=== PATIENT | female | born 1995 | race Caucasian/White ===

== ENCOUNTER 2021-08-13 17:25 | Inpatient (IN) | payer BC, SELFPAY ==
[2021-08-13] VITALS (10 sets, daily range): BP systolic 88–117; BP diastolic 52–66; PULSE 83–94; RESP 16; TEMP 36.4; BMI 33.5; BMI 28.3
[2021-08-13 18:17] LABS: Basophils Absolute Auto 0.1 K/mm3 (0.0-0.1); Basophils Percent Auto 0.6 % (0.2-1.2); Eosinophils Absolute Auto 0.1 K/mm3 (0-0.3); Eosinophils Percent Auto 0.8 % (0-4.4); Hemoglobin 11.7 g/dL (12.0-15.0); Immature Granulocyte Absolute 0.45 K/mm3 (0.00-0.031); Immature Granulocyte Percent A 2.6 % (0-0.5); Lymphocytes Absolute Auto 2.52 K/mm3 (0.9-3.2); Lymphocytes Percent Auto 14.6 % (18.3-44.2); Mean Corpuscular HGB Conc 34.4 g/dl (32-36); Mean Corpuscular Hemoglobin 33.1 pg (26-34); Mean Corpuscular Volume 96.3 fl (80-100); Mean Platelet Volume 10.7 fl (7.4-10.4); Monocytes Absolute Auto 1.4 K/mm3 (0.1-0.6); Monocytes Percent Auto 8.1 % (2.6-8.5); Neutrophils Absolute Auto 12.6 K/mm3 (1.3-6.7); Neutrophils Percent Auto 73.3 % (45.5-73.1); Platelet Count Result 192 k/mm3 (150-375); Red Blood Count 3.53 M/mm3 (4.2-5.4); Red Cell Distribution Width 12.7 % (11.5-14.5); White Blood Count 17.2 K/mm3 (4.5-10.0)
[2021-08-13] MEDS: LACTATED RINGERS 1,000 ML 125 ML IV CONT (18:31)
[2021-08-13] MEDS: DINOPROSTONE 10 MG VAG INSERT VAGINAL (18:53)
--- NOTE | 2021-08-13 19:50 | WPDANESEPP ---
Anes - Eval Pre Procedure Procedure: labor epidural Date/Time: 08/13/21 19:50 Surgeon: khalida Pre Op Diagnosis: IOL Patient Data Age: 26 Gender: F Height: 1.6 m Weight: 72.6 kg Last Vital Signs Pulse 92 08/13/21 19:31 BP 108/59 L 08/13/21 19:31 Allergies Allergy/AdvReac Type Severity Reaction Status Date / Time No Known Allergies Allergy Verified 08/13/21 15:03 Home Medications Medication Instructions Recorded Confirmed Type prenat.vits,jaden,mft-smaq-bceey 1 tablet PO DAILY 01/01/21 08/07/21 History Laboratory Tests 08/13/21 08/13/21 08/13/21 18:10 18:10 18:10 WBC 17.2 K/mm3 H K/mm3 (4.5-10.0) RBC 3.53 M/mm3 L M/mm3 (4.2-5.4) Hgb 11.7 g/dL L g/dL (12.0-15.0) Hct 34.0 % L % (37.0-47.0) MCV 96.3 fl fl (80-100) MCH 33.1 pg pg (26-34) MCHC 34.4 g/dl g/dl (32-36) RDW 12.7 % % (11.5-14.5) Plt Count 192 k/mm3 k/mm3 (150-375) MPV 10.7 fl H fl (7.4-10.4) Immature Gran % (Auto) 2.6 % H % (0-0.5) Neut % (Auto) 73.3 % H % (45.5-73.1) Lymph % (Auto) 14.6 % L % (18.3-44.2) [place] % (Auto) 8.1 % % (2.6-8.5) Eos % (Auto) 0.8 % % (0-4.4) Baso % (Auto) 0.6 % % (0.2-1.2) Lymph # (Auto) 2.52 K/mm3 K/mm3 (0.9-3.2) [place] # (Auto) 1.4 K/mm3 H K/mm3 (0.1-0.6) Eos # (Auto) 0.1 K/mm3 K/mm3 (0-0.3) Baso # (Auto) 0.1 K/mm3 K/mm3 (0.0-0.1) Abs Immat Gran (auto) 0.45 K/mm3 H K/mm3 (0.00-0.031) Absolute Neuts (auto) 12.6 K/mm3 H K/mm3 (1.3-6.7) Absolute Nucleated RBC 0.0 K/mm3 K/mm3 (0.0-0.012) Nucleated RBC % 0.0 % % (0.0-0.2) RPR Pending Blood Type O Positive Antibody Screen Negative Patient hx anesthesia problems: none Family hx anesthesia problems: none Results Review: All pre-operative results and documents have been reviewed as part of the pre-operative evaluation. [facility] Past Medical History Medical History Asthma Colitis Connective tissue disorder Sleep apnea Surgical History Surgical History H/O endoscopy History of tonsillectomy Hx of colonoscopy Hx of tympanostomy Family History Family History Father Alcoholism Mother Alcoholism Grandparent Diabetes mellitus Social History Social History Smoking status: Never smoker Alcohol intake: former Substance use: never Gender identity (if verbalized by the patient): Female Spiritual care concerns: No Exam Day of Procedure 08/13/21 19:50
[2021-08-14] VITALS (154 sets, daily range): BP systolic 89–137; BP diastolic 37–108; PULSE 66–159; RESP 16–20; TEMP 36.2–37.1; O2SAT 96–100
--- NOTE | 2021-08-14 06:20 | LDADM ---
This patient, Bee Prescott, was admitted to Labor/Delivery/Recovery 107 on 08/13/21 at 17:25. Plans for labor, pain management and were discussed with patient. Patient/family oriented to hospital policies and general routines including ID bracelet, bed and alarms, visiting hours, pain management, procedures, bathroom and other care routines, personal items, smoking policy, room service/diet and guest tray routines, security routines, and visiting hours. Patient/Family are encouraged to report perceived risks to care and to ask questions if they do not understand what they are told or what they should do. See OBIX for further documentation.
[2021-08-14 07:12] LABS: Rapid Plasma Reagin Non-Reactive (NonReactive)
[2021-08-14] MEDS: OXYTOCIN 30 UNITS/NS 500 ML 30 UNITS/500 ML BAG IV CONT (08:00)
--- NOTE | 2021-08-14 08:41 | PM.IMHP ---
H&P: HPI History of Present Illness Date/Time: 08/14/21 08:41 Chief Complaint: Induction of labor Narrative: Patient is a 26yo LMP 10/27/20 currently 39w3d gestation who presented to L&D for scheduled elective induction of labor. Patient is dated by US on 01/08/21 at 8w gestation. In general, patient doing well today. Denies any vaginal bleeding or leakage of fluid. Reports possible contractions. Reports good movement. Review of Systems Review of Systems: All systems reviewed & are unremarkable except as noted in HPI and below Constitutional: Constitutional: Reports as per HPI and Reports no additional constitutional complaints Eyes: Eyes: Reports as per HPI and Reports no additional eye complaints ENT: Reports system reviewed and no additional complaints, except as documented and Reports as per HPI Cardiovascular: Cardiovascular: Reports as per HPI and Reports no additional cardiovascular complaints Respiratory: Respiratory: Reports as per HPI and Reports no additional respiratory complaints Gastrointestinal: Gastrointestinal: Reports as per HPI and Reports no additional gastrointestinal complaints Genitourinary: Genitourinary: Reports no additional female genitourinary complaints and Reports as per HPI Musculoskeletal: Musculoskeletal: Reports no additional musculoskeletal complaints and Reports as per HPI Integumentary/Breasts: Skin/Breast: Reports system reviewed and no additional complaints, except as docu and Reports as per HPI Neurologic: Reports system reviewed and no additional complaints, except as documented and Reports as per HPI Psychiatric: Psychiatric: Reports no additional psychiatric complaints and Reports as per HPI Endocrine: Endocrine: Reports no additional endocrine complaints and Reports as per HPI Hematologic/Lymphatic: Hematologic/Lymphatic: Reports no additional hematologic/lymphatic complaints and Reports as per HPI Allergic/Immunologic: Allergic/Immunologic: Reports no additional allergic/immunologic complaints and Reports as per HPI PMF Past Medical History Medical History Asthma Colitis Connective tissue disorder Sleep apnea Surgical History Surgical History H/O endoscopy History of tonsillectomy Hx of colonoscopy Hx of tympanostomy Family History Family History Father Alcoholism Mother Alcoholism Grandparent Diabetes mellitus Social History Social History Smoking status: Never smoker Alcohol intake: former Substance use: never Gender identity (if verbalized by the patient): Female Spiritual care concerns: No Meds Home Medications and Allergies Home Medications Medication Instructions Recorded Confirmed Type prenat.vits,jaden,lem-enxz-chpqt 1 tablet PO DAILY 01/01/21 08/07/21 History Allergies Allergy/AdvReac Type Severity Reaction Status Date / Time No Known Allergies Allergy Verified 08/13/21 15:03 Vital Signs Vital Signs - 24 hr 08/13/21 18:28 08/13/21 18:30 08/13/21 18:31 Temperature Pulse Rate 94 91 92 Respiratory Rate Blood Pressure 88/52 L 109/62 110/63 Oxygen Delivery 08/13/21 18:46 08/13/21 19:01 08/13/21 19:31 Temperature Pulse Rate 92 83 92 Respiratory Rate Blood Pressure 109/65 108/61 108/59 L Oxygen Delivery 08/13/21 20:01 08/13/21 20:31 08/13/21 21:01 Temperature Pulse Rate 88 86 91 Respiratory Rate Blood Pressure 107/63 109/66 117/62 Oxygen Delivery 08/14/21 00:56 08/14/21 01:01 08/14/21 01:16 Temperature Pulse Rate 92 94 86 Respiratory Rate Blood Pressure 100/53 L 100/53 L 89/45 L Oxygen Delivery 08/14/21 02:38 08/14/21 00:57 08/13/21 19:20 Temperature 36.6 C 36.6 C 36.4 C Pulse Rate Respiratory Rate 16 16 Blood Pressure
[2021-08-14] MEDS: fentaNYL CITRATE INJ (*CRX) 100 MCG/2 ML VIAL 50 MCG IV PUSH ×3 (09:54→11:11)
--- NOTE | 2021-08-14 10:17 | WPDHPUPDATE1 ---
History and Physical Update Update Date/Time: 08/14/21 10:17 History and Physical has been reviewed, including an updated exam of the patient. There are NO changes in the patient's condition. Risks, benefits, and alternatives have been discussed and questions answered. Patient agrees to proceed with procedure.
[2021-08-14] MEDS: fentaNYL CITRATE INJ (*CRX) 100 MCG/2 ML VIAL IV PUSH (12:13)
[2021-08-14] MEDS: LACTATED RINGERS 1,000 ML 125 ML IV CONT ×2 (12:36→13:19)
[2021-08-14] MEDS: ONDANSETRON INJ 4 MG/2 ML VIAL IV PUSH (13:19)
[2021-08-14] MEDS: FAMOTIDINE 20 MG/2 ML VIAL IV PUSH (14:39)
--- NOTE | 2021-08-14 19:06 | PM.OBPRVD ---
OB - Delivery Note Procedure Delivery date: 08/14/21 Procedure: The patient 26-year-old now who presented to labor and delivery on the evening of 08/13/2021 at 39 weeks 2 days gestation for elective induction of labor. Patient was admitted to labor and delivery. Initial cervical exam was 1 cm dilated. Induction of labor was begun with Cervidil. Cervidil was placed and remained in place for approximately 12 hours. Upon Cervidil removal, patient was noted to be approximately 2 cm dilated. Artificial rupture membranes was performed at 7:55 a.m. Pitocin was then started for labor augmentation. Pitocin was continuously titrated throughout the morning and afternoon. Patient became increasingly uncomfortable and requested an epidural for pain management which was placed without difficulty. Pitocin was continued and patient made progressive cervical change. Patient was noted to be fully dilated at 5:46 p.m. Patient was encouraged to push and found to be pushing well. Patient was prepped for delivery. At 6:48 p.m., patient delivered infant head atraumatically and without difficulty in PERI presentation. Occiput restituted to maternal left side. With subsequent push, 's neck, shoulders, and rest of body delivered without difficulty. was crying spontaneously. The nose and mouth were suctioned with bulb suction. was placed on maternal abdomen where care was assumed by awaiting nursing staff. Delayed cord clamping was performed for 60 seconds. The cord was clamped and cut. A segment of cord was collected for cord gases. Cord blood was collected. The placenta was delivered spontaneously and intact. Uterine fundus was noted to be firm with massage. On inspection, a first-degree perineal laceration was noted. This laceration was repaired with 3-0 Vicryl in the usual fashion. Hemostasis was noted. Two superficial periurethral abrasions were noted, however, not bleeding. Estimated blood loss for entire delivery was 150 cc. The was a liveborn female , Apgars 8 and 9, weighing 7 lbs. 6 oz. Both mother and baby doing well at end of delivery. Events: Elective Induction of Labor Induction method: Per Cervidil Protocol Delivery augmentation: Rupture of Membranes and Pitocin Delivery monitor: External FHT and External Uterine Route of delivery: Laceration Description: Perineal - 1st Degree Delivery repair: vicryl (3-0 vicryl) Specimen: Yes (cord blood and cord gases) Quantitative Blood Loss (ml): 150 Anesthesia type: Epidural Disposition: Floor Complications: No immediate complications Baby Date of : 08/14/21 Time of : 18:48 Weeks of gestation at delivery: 39 (39.3) gender: Female Weight (pounds): 7 Weight (ounces): 6 presentation: vertex position: Left Occiput Anterior Placenta delivery description: Spontaneous Cord Vessel Description: 3 Vessels and Delayed Cord Clamping score one minute: 8 score five minutes: 9 AMG Delivery Billing Delivery Delivery: Delivery Charge
[2021-08-14] MEDS: OXYTOCIN 30 UNITS/NS 500 ML 30 UNITS/500 ML BAG 125 UNITS IV CONT (19:28)
[2021-08-14] MEDS: BENZOCAINE 20% AER SPR (*SP) 56 GM CAN 1 SPRAY TOPICAL (21:46)
[2021-08-14] MEDS: WITCH HAZEL 40 PADS 1 PAD TOPICAL (21:46)
--- NOTE | 2021-08-14 21:48 | OBPPTRN ---
Patient transferred to post room #285 via W/C. Support person present. Oriented to unit, room, information board, rooming in, admission packet and security measures. Patient verbalizes understanding.
[2021-08-14] MEDS: IBUPROFEN 600 MG TABLET PO (22:21)
[2021-08-15 00:30] VITALS: BP 105/65; PULSE 76; RESP 18; TEMP 36.9
[2021-08-15 04:30] VITALS: BP 100/50; PULSE 78; RESP 16; TEMP 37.1
[2021-08-15] MEDS: HYDROcodone/acetaminophen (*CRX) 5-325 MG TABLET 1 TAB PO (04:41)
[2021-08-15] MEDS: IBUPROFEN 600 MG TABLET PO ×3 (04:41→19:09)
[2021-08-15 05:59] LABS: Hematocrit 30.3 % (37.0-47.0); Hemoglobin 10.1 g/dL (12.0-15.0)
[2021-08-15 07:10] VITALS: BP 111/68; PULSE 89; RESP 20; TEMP 36.4
--- NOTE | 2021-08-15 08:28 | WPDANLDPN2 ---
Anes-Prog Note L&D Date/Time: 08/15/21 08:28 Comfortable throughout: labor and delivery Neuraxial method: epidural Epidural/Spinal procedure site: clean & non-tender Neuro status: Neuro function grossly intact. Post-Op hydration status: normal Vital Signs: Last Vital Signs Temp 97.5 F L 08/15/21 07:10 Pulse 89 08/15/21 07:10 Resp 20 08/15/21 07:10 BP 111/68 08/15/21 07:10 Pulse Ox 100 08/14/21 19:24 O2 Del Method Room Air 08/14/21 22:30 Pain score (VAS): 0 I/O: Intake & Output 08/14/21 08/15/21 08/15/21 23:59 07:59 15:59 Output Total 20 Balance -20 Post-procedural complaints: none Patient feedback: Patient satisfied with anesthetic care.
--- NOTE | 2021-08-15 10:31 | PM.OBPNVD ---
OB - PN: Subj Subjective Date/time seen: 08/15/21 10:31 Patient doing well this AM. Reports mild cramping. Reasonably controlled with medication. Minimal lochia. Ambulating without difficulty. Voiding well. OB - PN: Obj Data Labs CBC & Chem 7: 08/15/21 04:34 Labs: Laboratory Results - last 24 hr 08/15/21 04:34 Hgb 10.1 L Hct 30.3 L OB - PN A/P Assessment and Plan (1) Normal spontaneous vaginal delivery: Code(s): O80 - Encounter for full-term uncomplicated delivery Status: Acute Assessment and Plan: PPD#1 doing well continue routine care anticipate dc home tomorrow Time Spent With Patient Time: Total time spent is greater than 50% in coordination of care (as documented) at patient's floor/unit and/or counseling patient: Exam Const: General: cooperative, healthy appearing, comfortable and no acute distress GI: Inspection: non-distended GI Palp: Yes Soft to palpation and No Tenderness to palpation present (GI) Other: fundus firm below umbilicus Extrem: Right lower extremity: no edema Left lower extremity: no edema Other: no calf tenderness
[2021-08-15] MEDS: MULTIVIT/MIN/PREN/FOL AC/IRON TABLET 1 TAB PO (12:27)
[2021-08-15] MEDS: DOCUSATE SODIUM 100 MG CAPSULE PO ×2 (12:27→17:14)
[2021-08-15 12:30] VITALS: BP 103/76; PULSE 86; RESP 18; TEMP 36.4
[2021-08-15 17:10] VITALS: BP 103/63; PULSE 81; RESP 18; TEMP 36.5
[2021-08-15 19:10] VITALS: BP 95/55; PULSE 83; RESP 18; TEMP 36.8
--- NOTE | 2021-08-15 19:30 | PC.NURSE ---
Patient viewed the discharge video Mother & Baby Care, The First Two Weeks . Patient was given the opportunity and encouraged to ask questions. Patient verbalized understanding of information shared and has been given the mother/baby guide for home reference.
[2021-08-16] MEDS: IBUPROFEN 600 MG TABLET PO (05:40)
[2021-08-16 07:30] VITALS: BP 102/56; PULSE 69; RESP 16; TEMP 36.6; O2SAT 100
--- NOTE | 2021-08-16 08:26 | PM.OBPNVD ---
OB - PN: Subj Subjective Date/time seen: 08/16/21 08:26 Patient doing well. Reports cramping with pumping. Minimal lochia. Ambulating without difficulty. Voiding well. OB - PN: Obj Data Labs CBC & Chem 7: 08/15/21 04:34 OB - PN A/P Assessment and Plan (1) Normal spontaneous vaginal delivery: Code(s): O80 - Encounter for full-term uncomplicated delivery Status: Acute Assessment and Plan: PPD#2 doing well continue routine care dc home in stable condition emergency precautions reviewed f/u in office in 4-6 weeks for visit Time Spent With Patient Time: Total time spent is greater than 50% in coordination of care (as documented) at patient's floor/unit and/or counseling patient: Exam GI: Inspection: non-distended GI Palp: Yes Soft to palpation and No Tenderness to palpation present (GI) Other: fundus firm below umbilicus Extrem: Right lower extremity: no edema Left lower extremity: no edema Other: no calf tenderness
--- NOTE | 2021-08-16 08:28 | PM.OBDSVD ---
DS: Admitting Diagnosis Discharge Date 08/16/21 Admitting Diagnosis IUP at 39w2d Elective induction of labor OB - DS: Summary OB Procedures : None OB Procedures Intrapartum: Spontaneous Vag Delivery OB Procedures: : None Time Spent with Patient Time attestation: Total time spent providing and/or coordinating discharge services: Discharge Plan Discharge Attending physician on discharge: Mag Grimm Discharging Clinician: Mag Grimm Anticipated Discharge Date/Time: 08/16/21 08:28 Patient Disposition: Home, Self-Care Activity: as tolerated and pelvic rest Diet: regular Discharge Instructions: Call office ([phone]) to schedule a visit in 4-6 weeks. You may take Ibuprofen 600mg every 6 hours as needed for pain. Pain medication may make you constipated. It may be helpful to take an wsin-cll-uttoijc stool softener, such as Colace and/or Senokot, along with the pain medication to help lessen constipation. Call office or go to ED for pain not controlled with medication, headache, chest pain, shortness of breath, fever, chills, persistent nausea or vomiting, severe abdominal pain, heavy vaginal bleeding >2 pads/hour, foul vaginal discharge or odor, or problems with your breasts. Patient Instructions: Antibiotic Form Stand Alone Forms: General Discharge Information Follow-up/Referrals: Mag Grimm MD [Physician] - Discharge Medications: Continued prenat.vits,jaden,uhg-hiyj-ytuil Tablet 1 tablet PO DAILY Date of admission: 08/13/21 17:25 Primary Care Provider: Walt,Cristal Varma Admitting Provider: Mag Grimm Attending physician on admission: Mag Grimm Condition: Stable
[2021-08-16] MEDS: MULTIVIT/MIN/PREN/FOL AC/IRON TABLET 1 TAB PO (08:53)
[2021-08-16] MEDS: DOCUSATE SODIUM 100 MG CAPSULE PO (08:53)
[2021-08-18 10:37] VITALS: BP 111/73; PULSE 67; RESP 16; TEMP 36.9; O2SAT 100
== END 2021-08-16 10:36 | disposition home or self-care (01) | DRG 807 ==
LOC: ANHLDR 17:38 → ANHOB2 08-14 21:50
PROVIDERS: Admitting Provider Student in an Organized Health Care Education/Training Program; PCP Nurse Practitioner; Visit Provider Student in an Organized Health Care Education/Training Program
DX: O99.52 Diseases of the respiratory system complicating childbirth (principal); Z37.0 Single live birth; G47.30 Sleep apnea, unspecified; L94.9 Localized connective tissue disorder, unspecified; J45.909 Unspecified asthma, uncomplicated; O70.0 First degree perineal laceration during delivery; Z3A.39 39 weeks gestation of pregnancy
CPT/HCPCS: 36415; 85014; 85018; 85025; 86592; 86850; 86900; 86901; A9270; J2405; J2590; J2795; J3010; J7120

== ENCOUNTER 2023-06-10 14:20 | Outpatient (CLI) | payer BC, SELFPAY ==
[2023-06-10 14:37] LABS: Hematocrit 34.6 % (37.0-47.0); Mean Corpuscular HGB Conc 34.7 g/dl (32-36); Mean Corpuscular Hemoglobin 33.1 pg (26-34); Mean Corpuscular Volume 95.6 fl (80-100); Platelet Count Result 191 k/mm3 (150-375); Red Blood Count 3.62 M/mm3 (4.2-5.4); Red Cell Distribution Width 13.1 % (11.5-14.5); White Blood Count 11.1 K/mm3 (4.5-10.0)
[2023-06-10 15:30] LABS: HIV 1/2 Ab P24 Ag Result Negative (Negative)
[2023-06-13 16:04] LABS: Rapid Plasma Reagin Non-Reactive (NonReactive)
== END 2023-06-10 14:21 | disposition home or self-care (01) ==
LOC: ANHLAB 14:22
PROVIDERS: PCP Nurse Practitioner; Visit Provider Obstetrics & Gynecology
DX: Z34.90 Encounter for supervision of normal pregnancy, unspecified, unspecified trimester (principal)
CPT/HCPCS: 36415; 85027; 86592; 86703; G0432

== ENCOUNTER 2023-07-08 15:23 | Observation (INO) | payer BC, SELFPAY ==
[2023-07-08 15:30] VITALS: BMI 27.3
--- NOTE | 2023-07-11 08:52 | PM.OBTRLD ---
OB - Triage/Final Diagnosis Visit Information Comments/Additional reasons for admission: I have assessed the risk for this patient, Bee Prescott, and determined that she would benefit from observation care. Final Diagnosis (1) Abdominal pain affecting : Code(s): O26.899 - Other specified related conditions, unspecified trimester; R10.9 - Unspecified abdominal pain Status: Acute
== END 2023-07-08 16:52 | disposition home or self-care (01) ==
PROVIDERS: Admitting Provider Obstetrics & Gynecology; PCP Nurse Practitioner; Visit Provider Obstetrics & Gynecology
DX: O26.893 Other specified pregnancy related conditions, third trimester (principal); R10.9 Unspecified abdominal pain; Z3A.36 36 weeks gestation of pregnancy
CPT/HCPCS: G0378; G0379

== ENCOUNTER 2023-07-27 15:49 | Inpatient (IN) | payer BC, SELFPAY ==
[2023-07-27] VITALS (43 sets, daily range): BP systolic 95–118; BP diastolic 44–76; PULSE 65–88; RESP 16; TEMP 36.6–36.8; O2SAT 96–98; BMI 27.3
[2023-07-27 16:59] LABS: Basophils Absolute Auto 0.1 K/mm3 (0.0-0.1); Basophils Percent Auto 0.4 % (0.2-1.2); Eosinophils Absolute Auto 0.1 K/mm3 (0-0.3); Eosinophils Percent Auto 0.4 % (0-4.4); Hematocrit 32.7 % (37.0-47.0); Hemoglobin 11.6 g/dL (12.0-15.0); Immature Granulocyte Absolute 0.11 K/mm3 (0.00-0.031); Immature Granulocyte Percent A 0.9 % (0-0.5); Lymphocytes Absolute Auto 2.61 K/mm3 (0.9-3.2); Lymphocytes Percent Auto 22.2 % (18.3-44.2); Mean Corpuscular HGB Conc 35.5 g/dl (32-36); Mean Corpuscular Hemoglobin 34.1 pg (26-34); Mean Corpuscular Volume 96.2 fl (80-100); Mean Platelet Volume 10.5 fl (7.4-10.4); Monocytes Absolute Auto 0.9 K/mm3 (0.1-0.6); Monocytes Percent Auto 7.6 % (2.6-8.5); Neutrophils Absolute Auto 8.1 K/mm3 (1.3-6.7); Neutrophils Percent Auto 68.5 % (45.5-73.1); Platelet Count Result 172 k/mm3 (150-375); Red Cell Distribution Width 13.3 % (11.5-14.5); White Blood Count 11.8 K/mm3 (4.5-10.0)
--- NOTE | 2023-07-27 17:10 | LDADM ---
This patient, Bee Prescott, was admitted to Labor/Delivery/Recovery 103 on 07/27/23 at 15:49. Plans for labor, pain management and were discussed with patient. Patient/family oriented to hospital policies and general routines including ID bracelet, bed and alarms, visiting hours, pain management, procedures, bathroom and other care routines, personal items, smoking policy, room service/diet and guest tray routines, security routines, and visiting hours. Patient/Family are encouraged to report perceived risks to care and to ask questions if they do not understand what they are told or what they should do. See OBIX for further documentation.
[2023-07-27] MEDS: miSOPROStol 25 MCG TABLET 50 MCG XX (17:38)
[2023-07-27 17:57] LABS: HIV 1/2 Ab P24 Ag Result Negative (Negative)
--- NOTE | 2023-07-27 19:11 | WPDANESEPP ---
Anes - Eval Pre Procedure Procedure: labor epidural Date/Time: 07/27/23 19:11 Pre Op Diagnosis: iol Patient Data Age: 28 Gender: F Height: 1.6 m Weight: 70 kg Last Vital Signs Temp 36.8 C 07/27/23 17:41 Pulse 76 07/27/23 19:00 Resp 16 07/27/23 17:41 BP 115/68 07/27/23 19:00 O2 Del Method Room Air 07/27/23 17:06 Allergies Allergy/AdvReac Type Severity Reaction Status Date / Time hydrocodone Allergy Mild Itching Verified 07/21/23 09:09 Home Medications Medication Instructions Recorded Confirmed Type prenat.vits,jaden,ytr-uorw-osrmd 1 tablet PO DAILY 01/01/21 07/27/23 History calcium carbonate (Tums) 300 mg PO QID PRN Heartburn 01/19/23 07/27/23 History fluoxetine 10 mg capsule (Prozac) 10 mg PO DAILY #30 caps 06/08/23 07/27/23 Rx famotidine 10 mg BYMOUTH DAILY 07/05/23 07/27/23 History Laboratory Tests 07/27/23 16:53 WBC 11.8 H K/mm3 (4.5-10.0) RBC 3.40 L M/mm3 (4.2-5.4) Hgb 11.6 L g/dL (12.0-15.0) Hct 32.7 L % (37.0-47.0) MCV 96.2 fl (80-100) MCH 34.1 H pg (26-34) MCHC 35.5 g/dl (32-36) RDW 13.3 % (11.5-14.5) Plt Count 172 k/mm3 (150-375) MPV 10.5 H fl (7.4-10.4) Immature Gran % (Auto) 0.9 H % (0-0.5) Neut % (Auto) 68.5 % (45.5-73.1) Lymph % (Auto) 22.2 % (18.3-44.2) [place] % (Auto) 7.6 % (2.6-8.5) Eos % (Auto) 0.4 % (0-4.4) Baso % (Auto) 0.4 % (0.2-1.2) Lymph # (Auto) 2.61 K/mm3 (0.9-3.2) [place] # (Auto) 0.9 H K/mm3 (0.1-0.6) Eos # (Auto) 0.1 K/mm3 (0-0.3) Baso # (Auto) 0.1 K/mm3 (0.0-0.1) Abs Immat Gran (auto) 0.11 H K/mm3 (0.00-0.031) Absolute Neuts (auto) 8.1 H K/mm3 (1.3-6.7) Absolute Nucleated RBC 0.000 K/mm3 (0.0-0.012) Nucleated RBC % 0.0 % (0.0-0.2) RPR Pending HIV 1&2 Ab/P24 Ag 4thGn Negative (Negative) Blood Type O Positive Antibody Screen Negative Patient hx anesthesia problems: none Family hx anesthesia problems: none Results Review: All pre-operative results and documents have been reviewed as part of the pre-operative evaluation. [facility] Past Medical History Medical History Asthma Colitis Connective tissue disorder Normal spontaneous vaginal delivery Sleep apnea Surgical History Surgical History H/O endoscopy History of tonsillectomy Hx of colonoscopy Hx of tympanostomy Family History Family History Father Alcoholism Mother Alcoholism Grandparent Diabetes mellitus Social History Social History Smoking status: Never smoker Second hand tobacco smoke exposure: No Alcohol intake: former Substance use: never Do You Feel Safe in your Home?: Yes Lack of Transportation: No Lack of Food: Never True Current Housing: I Have Housing Concerned About Future Housing: No Difficulty Paying Gas/Electric Bills: No Difficulty Paying for Meds: No Currently Unemployed: No Education: High School Diploma/GED Difficulty w/ Childcare or Family Care: No Gender identity (if verbalized by the patient): Female Spiritual care concerns: No Exam Day of Procedure 07/27/23 19:11 Patient weight: overweight Heart: regular rate and rhythm Lungs: normal air movement Airway: Mallampati scale Neurological: alert and oriented
[2023-07-27] MEDS: LACTATED RINGERS 1,000 ML 125 ML IV CONT (19:27)
[2023-07-27] MEDS: fentaNYL CITRATE INJ (*CRX) 100 MCG/2 ML VIAL 50 MCG IV PUSH (22:12)
[2023-07-28] VITALS (142 sets, daily range): BP systolic 72–118; BP diastolic 42–82; PULSE 55–89; RESP 16–20; TEMP 36.6–37.3; O2SAT 96–100
[2023-07-28] MEDS: fentaNYL CITRATE INJ (*CRX) 100 MCG/2 ML VIAL 50 MCG IV PUSH (00:09)
[2023-07-28] MEDS: ACETAMINOPHEN 500 MG TABLET 1000 MG PO (01:21)
[2023-07-28] MEDS: LACTATED RINGERS 1,000 ML 125 ML IV CONT (04:00)
[2023-07-28] MEDS: OXYTOCIN 30 UNITS/NS 500 ML 30 UNITS/500 ML BAG 999 UNITS IV CONT (05:18)
[2023-07-28] MEDS: OXYTOCIN 30 UNITS/NS 500 ML 30 UNITS/500 ML BAG 125 UNITS IV CONT (05:35)
[2023-07-28] MEDS: IBUPROFEN 600 MG TABLET PO ×2 (12:10→18:50)
--- NOTE | 2023-07-28 14:05 | PC.NURSE ---
[phone] Mother verbalizes she is able to independently latch with appropriate positioning and alignment. She denies any nipple discomfort and is responsively . is currently meeting outcomes for weight, output, jaundice, blood sugar and feeding frequencies of 8-12 times in 24 hours. Mother declines any additional assistance or education at this time. Mother is encouraged to call for assistance if her doesn?t latch, pain with latching, questions or concerns. Mother voiced understanding of information shared along with the mom/baby guide for an additional resource. RN BRITT name written on the communication board to use the call light to request assistance with concerns. [phone] Patient called for a consult. Upon entering the room mother has [id number] and no rooting or feeding cues are visualized. is about right at 7 hours of life into this new world. Mother is encouraged with techniques to wake , stimulate with hand expressed colostrum and encouraging a deep latch. Encouraged understanding of the benefits of skin to skin (demonstrating unwrapping and placing upright on her chest), stimulating with massage touch, changing positions to encourage wakefulness (laying down, then lifting up to burp position), how to watch for early feeding cues, responsive feeding, feeding on demand (aiming for 8-12 times in 24 hours, about every 2-3 hours), milk production, hand expression, building/maintaining a milk supply, duration of feeding, signs of adequate intake/output and how to record on the feeding sheet. Mother works well with her with encouragement and education. Reviewed positioning and ear, shoulder, hip alignment, supporting the breast to facilitate a deep latch, asymmetrical latch (off-center), leading with the chin with a big, open, wide gape and body close to mother. latched optimally to the left breast in cross cradle position did not maintain and would let the breast go when mother would let go of her sandwich hold. Mother is agreeable to latch infant to the left using the football positioning. Education given to the mother of how to visualize the suckling (with good rocking jaw motion), swallows (dropping of the lower jaw) and how to listen for drinking at the breast (the ka sound) which demonstrates well. was able to maintain latch without pain to mother protecting the nipple with optimal positioning and latching. Mother voiced understanding of skin to skin, stimulating with massage touch, responsive feedings, hand expressed colostrum, talking to to encourage if it has been 2 -2.5 hours since the start of the last , to call if infant does not latch, if there is discomfort with and how to call for assistance.
--- NOTE | 2023-07-28 16:05 | PM.IMHP ---
H&P: HPI History of Present Illness Date/Time: 07/28/23 16:05 Chief Complaint: Induction of labor. Narrative: Patient at 39 weeks admitted for MIL. She has been informed of risk benefits of induction and wants to proceed with induction. Review of Systems Review of Systems: All systems reviewed & are unremarkable except as noted in HPI and below Constitutional: Constitutional: Reports no additional constitutional complaints and Denies headache(s) Eyes: Eyes: Denies spots in vision ENT: Reports system reviewed and no additional complaints, except as documented and Denies headache(s) Cardiovascular: Cardiovascular: Denies chest pain and Denies dyspnea Respiratory: Respiratory: Denies dyspnea Gastrointestinal: Gastrointestinal: Reports no additional gastrointestinal complaints Genitourinary: Genitourinary: Reports amenorrhea Musculoskeletal: Musculoskeletal: Reports no additional musculoskeletal complaints Integumentary/Breasts: Skin/Breast: Denies breast mass and Denies rash Neurologic: Denies headache(s) Psychiatric: Psychiatric: Reports no additional psychiatric complaints PMFSH Past Medical History Medical History Asthma Colitis Connective tissue disorder Normal spontaneous vaginal delivery Sleep apnea Surgical History Surgical History H/O endoscopy History of tonsillectomy Hx of colonoscopy Hx of tympanostomy Family History Family History Father Alcoholism Mother Alcoholism Grandparent Diabetes mellitus Social History Social History Smoking status: Never smoker Second hand tobacco smoke exposure: No Alcohol intake: former Substance use: never Do You Feel Safe in your Home?: Yes Lack of Transportation: No Lack of Food: Never True Current Housing: I Have Housing Concerned About Future Housing: No Difficulty Paying Gas/Electric Bills: No Difficulty Paying for Meds: No Currently Unemployed: No Education: High School Diploma/GED Difficulty w/ Childcare or Family Care: No Gender identity (if verbalized by the patient): Female Spiritual care concerns: No Meds Home Medications and Allergies Home Medications Medication Instructions Recorded Confirmed Type prenat.vits,jaden,cqw-opwd-ioyzk 1 tablet PO DAILY 01/01/21 07/27/23 History calcium carbonate (Tums) 300 mg PO QID PRN Heartburn 01/19/23 07/27/23 History fluoxetine 10 mg capsule (Prozac) 10 mg PO DAILY #30 caps 06/08/23 07/27/23 Rx famotidine 10 mg BYMOUTH DAILY 07/05/23 07/27/23 History Allergies Allergy/AdvReac Type Severity Reaction Status Date / Time hydrocodone Allergy Mild Itching Verified 07/21/23 09:09 Vital Signs Vital Signs - 24 hr 07/27/23 16:12 07/27/23 16:15 07/27/23 16:30 Temperature Pulse Rate 83 79 87 Respiratory Rate Blood Pressure 104/67 109/65 101/71 Pulse Oximetry Oxygen Delivery 07/27/23 17:00 07/27/23 17:15 07/27/23 17:41 Temperature 98.2 F Pulse Rate 80 77 74 Respiratory Rate 16 Blood Pressure 101/64 104/66 106/65 Pulse Oximetry Oxygen Delivery 07/27/23 17:45 07/27/23 18:00 07/27/23 18:15 Temperature Pulse Rate 73 80 74 Respiratory Rate Blood Pressure 96/56 L 99/76 L 100/54 L Pulse Oximetry Oxygen Delivery 07/27/23 18:30 07/27/23 18:45 07/27/23 19:00 Temperature Pulse Rate 80 80 76 Respiratory Rate Blood Pressure 100/53 L 101/62 115/68 Pulse Oximetry Oxygen Delivery 07/27/23 19:15 07/27/23 19:30 07/27/23 19:45 Temperature Pulse Rate 87 70 69 Respiratory Rate Blood Pressure 118/66 110/65 110/67 Pulse Oximetry Oxygen Delivery 07/27/23 20:00 07/27/23 20:15 07/27/23 20:48 Temperature 97.9 F Pulse Rate 88 80 84 Respiratory Rate Blood Pressure
--- NOTE | 2023-07-28 16:07 | PM.OBPRVD ---
OB - Vaginal Delivery Note Procedure Delivery date: 07/28/23 Induction method: Per Misoprostol Protocol Delivery monitor: External FHT Route of delivery: Laceration Description: None Specimen: No Quantitative Blood Loss (ml): 150 Anesthesia type: Epidural Disposition: Floor Complications: No immediate complications Narrative: She was admitted for MIL. She had cytotec 50 mcg and progressed to active labor. She had epidural placed on request. She had SROM. She delivered male infant over intact perineum. Baby Date of : 07/28/23 Time of : 05:17 Weeks of gestation at delivery: 39 Infant gender: Male Weight (pounds): 8 Weight (ounces): 1 presentation: vertex position: Left Occiput Anterior Placenta delivery description: Spontaneous Cord Vessel Description: 3 Vessels, Loose, Reduced (manually), Clamped/Cut and Delayed Cord Clamping score one minute: 7 score five minutes: 9
[2023-07-28 16:43] LABS: Rapid Plasma Reagin Non-Reactive (NonReactive)
[2023-07-28] MEDS: ACETAMINOPHEN 325 MG TABLET 650 MG PO (16:59)
[2023-07-29] MEDS: IBUPROFEN 600 MG TABLET PO ×2 (03:34→09:23)
[2023-07-29 05:42] LABS: Hematocrit 31.9 % (37.0-47.0); Hemoglobin 10.6 g/dL (12.0-15.0)
--- NOTE | 2023-07-29 07:52 | WPDANLDPN2 ---
Anes-Prog Note L&D Date/Time: 07/29/23 07:52 Comfortable throughout: labor and delivery Neuraxial method: epidural Epidural/Spinal procedure site: clean & non-tender Neuro status: Neuro function grossly intact. Cardiovascular status: normal Respiratory status: normal Airway patency: baseline Mental status: baseline Post-Op hydration status: normal Vital Signs: Last Vital Signs Temp 37.1 C 07/28/23 18:50 Pulse 64 07/28/23 18:50 Resp 20 07/28/23 18:50 BP 103/71 07/28/23 18:50 Pulse Ox 100 07/28/23 18:50 O2 Del Method Room Air 07/27/23 17:06 Pain score (VAS): 1/10 I/O: Intake & Output 07/28/23 07/28/23 07/29/23 15:59 23:59 07:59 Output Total 650 Balance -650 Post-procedural complaints: none Patient feedback: Patient satisfied with anesthetic care.
[2023-07-29 08:35] VITALS: BP 115/69; PULSE 71; RESP 18; TEMP 36.8; O2SAT 100
[2023-07-29] MEDS: MULTIVIT/MIN/PREN/FOL AC/IRON TABLET 1 TAB PO (09:23)
[2023-07-30 10:24] VITALS: BP 104/59; PULSE 79; RESP 18; TEMP 36.7; O2SAT 99
--- NOTE | 2023-08-31 08:57 | PM.OBDSVD ---
DS: Admitting Diagnosis Discharge Date 07/29/23 Admitting Diagnosis Induction of labor DS: Discharge Diagnosis Discharge Diagnosis (1) Normal spontaneous vaginal delivery: Code(s): O80 - Encounter for full-term uncomplicated delivery Status: Acute OB - DS: Summary Hospital Course Hospital Course: she is admitted for medical induction of labor. She received Cytotec and progressed to active labor. She had epidural placed on request she had spontaneous rupture membranes and had an uncomplicated vaginal delivery. She did well baby did well . She requested discharge to home on day 1. She was doing well. She was discharged home on day 1 discharge precautions discussed. OB Procedures : Ultrasound OB Procedures Intrapartum: Spontaneous Vag Delivery OB Procedures: : None Peripartum Data Infant Delivery Method: Natural Vaginal Laceration Description: None complications: none Status at Discharge Functional status at discharge: independent ambulation Time Spent with Patient Time attestation: Total time spent providing and/or coordinating discharge services: Exam Const: General: cooperative Orientation/consciousness: oriented to person, oriented to place and oriented to time HENMT: Face/Nose/Sinus: Normal external nose present Eyes: General: appearance normal, both eyes and all related structures Resp: Effort & Inspection: normal respiratory effort GI: Inspection: normal to inspection Skin: General skin exam: normal color Neuro: General: oriented to person, oriented to place and oriented to time Extrem: General: normal to inspection and no calf tenderness Psych: Appearance: grossly normal Mental Status: mental status grossly normal Discharge Plan Discharge Attending physician on discharge: Gerardo Medina Consulting providers: Domitila Shearer; Leticia Julian Discharging Clinician: Gerardo Medina Anticipated Discharge Date/Time: 07/29/23 10:26 Patient Disposition: Home, Self-Care Activity: may shower and pelvic rest Diet: regular Discharge Instructions: Education: Mom and Baby Guide Given to: Mother Follow-Up: Call your delivering provider's office for an appointment to be seen in: 4 Weeks Mom and baby should come to the [facility] for the follow-up appointment. Appointment Date/Time: July 30, 2023 at 10:00 am What to expect at your follow-up visit: Blood Pressure Check Physical Assessment Call [phone] if you are unable to keep your appointment time. BREAST CARE: * Wear a snug supportive bra. * For engorgement discomfort: Breast Feeding: * Apply warm moist washcloths * Express milk as needed to relieve engorgement * Wear loose clothing Bottle Feeding: * May apply ice packs * For sore nipples: * Identify correct latch-on * Apply warm moist washcloths before and after nursing * Air dry nipples after nursing * May apply Lansinoh cream to nipples EPISIOTOMY/PERINEAL CARE: * Until bleeding stops, use your jocelyn bottle after urinating * Change your pad frequently throughout the day * You may take sitz baths several times a day (fill your bathtub with warm water and soak for 20 minutes.) Do NOT bathe in the water * No tub baths until seen by your physician - You may shower ACTIVITY: * Rest as much as possible. * Do not exercise or lift anything heavier than your baby (such as laundry or other children.) * Avoid stairs or driving as much as possible. * Do not put anything into the vagina. No douching, tampons, or sexual activity until seen by physician. NOTIFY PHYSICIAN IF YOU HAVE ANY QUESTIONS OR IF ANY OF THE FOLLOWING SYMPTOMS OCCUR: * If your episiotomy or incision becomes red, swollen, or more painful than what you have experienced in the hospital. * If your vaginal
== END 2023-07-29 14:00 | disposition home or self-care (01) | DRG 807 ==
LOC: ANHLDR 16:00 → ANHOB2 07-28 08:22
PROVIDERS: Admitting Provider Obstetrics & Gynecology; PCP Nurse Practitioner; Visit Provider Obstetrics & Gynecology
DX: O69.82X0 Labor and delivery complicated by other cord entanglement, without compression, not applicable or unspecified (principal); Z37.0 Single live birth; Z3A.39 39 weeks gestation of pregnancy
CPT/HCPCS: 36415; 85014; 85018; 85025; 86592; 86703; 86850; 86900; 86901; A9270; G0432; J2590; J3010; J7120

== ENCOUNTER 2024-10-31 00:37 | Day surgery (SDC) | payer OTHER, SELFPAY ==
[2024-10-26 13:33] VITALS: BMI 22.1
--- NOTE | 2024-10-26 13:34 | PC.NURSE ---
Report to the Outpatient Waiting Room, entrance under the green pavilion located off [facility], at time _1030_ on date _[id number]_. Planned Procedure Time: _1230_.? Time changes happen often and if your time is changed the preop area will call you the afternoon before. - You and your visitor will be asked to self-screen and do not enter if you have any COVID symptoms. Please call surgeon if you need to reschedule. - A mask is optional within the hospital at this time. Patients may have clear liquids (water, carbonated beverages, clear teas, apple juice) until 3 hours prior to surgery with a maximum of 20 ounces. - No food from midnight until time of surgery and no smoking, or chewing tobacco (or any form of nicotine). No chewing gum, candy or mints. Take only the following medications with a SIP of water on the morning of surgery: __None____ DO NOT STOP ANY OF YOUR OTHER PRESCRIPTION MEDICATIONS PRIOR TO SURGERY EXCEPT THE FOLLOWING Hold all vitamins and supplements for 3 days per anesthesiologist. Medications to discontinue per physician Date to take last dose Please no make-up, nail italian, hairspray, perfume, deodorant, or body powder the day of surgery.? No jewelry (including any body piercings) or valuables the day of surgery, leave them at home.? Please take a shower or bath the night before, or the morning of, surgery with an antibacterial soap.? Wear comfortable, loose fitting clothing.? - Jewelry must be removed prior to entering the operating room.? Rings and piercings that are not removed may be cut off. - The hospital will not accept responsibility for valuables.? - Please leave all valuables, including medications, at home the day of surgery. If you are going home after surgery, a licensed driver operator must drive you home.? - NO public transportation without another adult if you receive anesthesia. - We recommend that an adult stay with you for 24 hours following discharge. - We also recommend that you do not drive, make important decision, drink alcoholic beverages, or take any drugs that were not prescribed by your health care provider for at least 24 hours after your discharge time. Follow any additional instructions given to you from your surgeon. Telephone instructions given to __Bee___and asked if any additional questions and then verbalized understanding. Patient advised to call surgeon office or pre surgery nurse liaison [phone] if any additional questions.
--- NOTE | 2024-10-30 22:01 | P.HP_ITS ---
H&P: HPI History of Present Illness Date/Time: 10/30/24 22:01 Chief Complaint: Undesired fertility Narrative: Patient is a 29 y/o Para 2 with satisfied parity. She request permanent sterilization. She has been made aware of all other non-permanent forms of contraception. She declines non permanent forms of contraception and strongly desires permanent sterilzation. Review of Systems Review of Systems: All systems reviewed & are unremarkable except as noted in HPI and below Cardiovascular: Cardiovascular: Reports no additional cardiovascular complaints, Denies chest pain and Denies dyspnea Respiratory: Respiratory: Reports no additional respiratory complaints and Denies dyspnea Gastrointestinal: Gastrointestinal: Reports abdominal pain, Denies change in bowel habits, Denies diarrhea, Denies nausea and Denies vomiting Genitourinary: Genitourinary: Reports pelvic pain Musculoskeletal: Musculoskeletal: Reports back pain Integumentary/Breasts: Skin/Breast: Reports system reviewed and no additional complaints, except as docu Neurologic: Reports system reviewed and no additional complaints, except as documented PMFSH Past Medical History Medical History Normal spontaneous vaginal delivery Asthma Colitis Sleep apnea Connective tissue disorder Surgical History Surgical History History of tonsillectomy Hx of tympanostomy Hx of colonoscopy H/O endoscopy Family History Family History Father Alcoholism Mother Alcoholism Grandparent Diabetes mellitus Social History Social History Smoking status: Never smoker Second hand tobacco smoke exposure: No Alcohol intake: former Substance use: never Do You Feel Safe in your Home?: Yes Lack of Transportation: No Lack of Food: Never True Current Housing: I Have Housing Concerned About Future Housing: No Difficulty Paying Gas/Electric Bills: No Difficulty Paying for Meds: No Currently Unemployed: No Education: High School Diploma/GED Difficulty w/ Childcare or Family Care: No Living arrangements: with family Gender identity (if verbalized by the patient): Female Spiritual care concerns: No Meds Home Medications and Allergies Home Medications ?Medication ?Instructions ?Recorded ?Confirmed ?Type fluoxetine 20 mg capsule (Prozac) 20 mg PO DAILY #90 c aps 08/18/23 10/26/24 Rx Allergies Allergy/AdvReac Type Severity Reaction Status Date / Time hydrocodone Allergy Mild Itching Verified 10/26/24 13:27 Exam Const: Orientation/consciousness: oriented to person and oriented to place HENMT: Head: normal to inspection Eyes: General: appearance normal, both eyes and all related structures Resp: Effort & Inspection: normal respiratory effort Auscultation: clear to auscultation bilaterally Cardio: Rate: regular rate Rhythm: regular rhythm GI: Inspection: normal to inspection GI Palp: No Rebound tenderness present Neuro: General: oriented to person and oriented to place Cognition (Neuro): normal cognition Extrem: General: normal to inspection Psych: Appearance: grossly normal and well kempt Assessment and Plan Assessment and plan (1) Encounter for sterilization: Code(s): Z30.2 - Encounter for sterilization Status: Acute Assessment and Plan: Will proceed with laparoscopic bilateral salpingectomy for sterilization.
[2024-10-31] VITALS (9 sets, daily range): BP systolic 91–102; BP diastolic 55–68; PULSE 56–87; RESP 12–18; TEMP 36.3–36.4; O2SAT 99–100
[2024-10-31] MEDS: ACETAMINOPHEN 500 MG TABLET 1000 MG PO (11:10)
[2024-10-31] MEDS: LACTATED RINGERS 1,000 ML 30 ML IV CONT ×2 (11:15→13:37)
[2024-10-31] MEDS: KETOROLAC 15 MG/ML VIAL (*BKC) IV PUSH (11:15)
[2024-10-31 11:25] LABS: BEDSIDEPREGUCG Negative (Negative)
[2024-10-31] MEDS: SCOPOLAMINE 1 MG PATCH 1 PATCH TRANSDERM (11:27)
--- NOTE | 2024-10-31 11:59 | WPDHPUPDATE1 ---
History and Physical Update Update Date/Time: 10/31/24 11:59 History and Physical has been reviewed, including an updated exam of the patient. There are NO changes in the patient's condition. Risks, benefits, and alternatives have been discussed and questions answered. Patient agrees to proceed with procedure.
--- NOTE | 2024-10-31 12:18 | P.PNAN_ITS ---
Anes - Initial Pre Proc Eval Procedure: Operation Date: 10/31/24 12:30 Proposed Procedures p Laparoscopic Bilateral Salpingectomy - Gerardo Medina MD Date/Time: 10/31/24 12:18 Surgeon: Gerardo Medina MD Pre Op Diagnosis: desires sterilization Patient Data Age: 29 Gender: F Height: 1.6 m Weight: 55.7 kg Last Vital Signs Temp 36.4 C L 10/31/24 10:47 Pulse 77 10/31/24 10:47 Resp 16 10/31/24 10:47 BP 100/60 10/31/24 10:47 Pulse Ox 100 10/31/24 10:47 O2 Del Method Room Air 10/31/24 10:47 Allergies Allergy/AdvReac Type Severity Reaction Status Date / Time hydrocodone Allergy Mild Itching Verified 10/31/24 11:19 Home Medications ?Medication ?Instructions ?Recorded ?Confirmed ?Type fluoxetine 20 mg capsule (Prozac) 20 mg PO DAILY #90 c aps 08/18/23 10/31/24 Rx Laboratory Tests 10/31/24 11:22 POC Urine HCG, Qual Negative (Negative) Patient hx anesthesia problems: post op nausea/vomiting Family hx anesthesia problems: none Results Review: All pre-operative results and documents have been reviewed as part of the pre- operative evaluation. [facility] Past Medical History Medical History Normal spontaneous vaginal delivery Asthma Colitis Sleep apnea Connective tissue disorder Surgical History Surgical History History of tonsillectomy Hx of tympanostomy Hx of colonoscopy H/O endoscopy Family History Family History Father Alcoholism Mother Alcoholism Grandparent Diabetes mellitus Social History Social History Smoking status: Never smoker Second hand tobacco smoke exposure: No Alcohol intake: former Substance use: never Do You Feel Safe in your Home?: Yes Lack of Transportation: No Lack of Food: Never True Current Housing: I Have Housing Concerned About Future Housing: No Difficulty Paying Gas/Electric Bills: No Difficulty Paying for Meds: No Currently Unemployed: No Education: High School Diploma/GED Difficulty w/ Childcare or Family Care: No Gender identity (if verbalized by the patient): Female Spiritual care concerns: No Anes - Eval Final PreProcedure Day of Procedure 10/31/24 12:18 Patient weight: normal Heart: regular rate and rhythm Lungs: clear to auscultation Airway: Mallampati scale class 1 Neurological: alert and oriented Last oral intake: >/= 8 hours ASA classification: II Emergent: no Anesthetic plan: proceed Anesthesia type and monitoring: general ETT and standard monitoring Results Review: All pre-operative results and documents have been reviewed as part of the pre- operative evaluation. Informed Consent: The patient's anesthetic plan and its attendant risks and benefits were discussed with the patient/family/POA. Questions were solicited and answers provided to the satisfaction of the patient/family/POA.
--- NOTE | 2024-10-31 13:08 | S_PTH ---
PATIENT: Bee Prescott LOC: [facility] U#:[id number] AGE/SX: 29/F ROOM: RE10/31/[address]: Gerardo Medina MD : 1995 BED: DIS: 10/31/2024 SPEC #: [id number] RECD: 10/31/24 14:14 STATUS: JAIMEE REQ #: [id number] VEEAN: 10/31/24 13:[address]: Gerardo Medina DEPT: [facility] Surgical RECD BY: Yazan Gilbert ENTERED: 10/31/24 14:15 SP TYPE: Surgical OTHR DR: Cristal Godoy, HVAC/R SERVICE TECHNICIAN Tissues: A - Fallopian Tube Bilateral Procedures: Gross and Microscopic Level 2 Hematoxylin and Eosin Stain
--- NOTE | 2024-10-31 13:49 | P.OP_ITS ---
Procedure Note - Detailed Date of Procedure 10/31/24 Pre-op Diagnosis desires sterilization Post-op Diagnosis Same Procedure Performed laparoscopic bilateral salpingectomy Surgeon Gerardo Medina MD [place] Former Machine Operator Jonnathan Barrientos Anesthesia General Indications Undesired fertility desires permanent sterilization declines all other nonpermanent forms of contraception. Findings Normal uterus normal fallopian tubes and ovaries bilateral. Description of Procedure After informed consent was obtained patient was taken to the operating room and general endotracheal anesthesia was administered. She was placed in low lithotomy need prep prepped sterile fashion. Attention was turned to the vagina speculum inserted single-tooth tenaculum placed on anterior lip of the cervix. Bladder drained of 200 cc of yellow urine. An Tamiami uterine manipulator placed into the cervical canal. The speculum was removed. Attention was then turned to the abdomen. Marcaine was injected subcutaneously and a vertical incision was made at the umbilicus and a Veress needle was inserted into the abdomen confirmation into the abdomen obtained with free flow of fluid and normal peritoneal pressures. A pneumoperitoneum of 15 mm per mercury was obtained. The 5 mm port was inserted under laparoscopic visualization. Patient was placed in Trendelenburg position. Attention was turned to the left side of the abdomen and a 5 mm port was inserted under laparoscopic visualization. The pelvic organs were visualized. Using the LigaSure the right and left fallopian tube was excised to near the entrance to the uterus using the LigaSure. The fallopian tubes were removed through the port. Hemostasis was noted at both sites. Patient was taken out of Trendelenburg position the pneumoperitoneum was released and the skin incisions were closed in a subcuticular fashion with 4 O Vicryl. Estimated Blood Loss 5 Drains No Packing No Pathology Yes ( right and left fallopian tubes) Complications No immediate complications Condition Stable Disposition PACU [facility] Billing Surgery - Charge Forward: Surgery Billing
[2024-10-31] MEDS: oxyCODONE HCL (*CRX) 5 MG TAB IR PO (14:41)
== END 2024-10-31 15:30 | disposition home or self-care (01) ==
PROVIDERS: PCP Nurse Practitioner; Visit Provider Obstetrics & Gynecology
PROC: (CPT 49320; principal; 2024-10-31 12:30)
DX: Z30.2 Encounter for sterilization (principal); N83.8 Other noninflammatory disorders of ovary, fallopian tube and broad ligament; G89.18 Other acute postprocedural pain; J45.909 Unspecified asthma, uncomplicated; G47.30 Sleep apnea, unspecified; L94.9 Localized connective tissue disorder, unspecified; Z98.890 Other specified postprocedural states; Z87.19 Personal history of other diseases of the digestive system
CPT/HCPCS: 58661; 88302; A9270; J1100; J1885; J2003; J2250; J2405; J2704; J3010; J7120